=== PATIENT | male | born 1990 | race Caucasian/White ===

== ENCOUNTER 2016-09-23 12:34 | Emergency (ER) | payer SELFPAY ==
[~2016-09-23] VITALS: Ht 172.7 cm; Wt 59.1 kg
[~2016-09-23 12:34] MED LIST: NO HOME MEDICATIONS; NORCO 325 MG-51 TAB PO; NORCO 325 MG-7.1 TAB PO; TYLENOL #3 301 UDTAB PO
[2016-09-23 12:41] VITALS: BP 150/93; TEMP 98.2
[2016-09-23 13:47] VITALS: PULSE 106
== END 2016-09-23 13:53 | disposition home or self-care (01) ==
LOC: COL.ER 12:34
DX: S80.01XA Contusion of right knee, initial encounter (principal); W22.8XXA Striking against or struck by other objects, initial encounter; F17.210 Nicotine dependence, cigarettes, uncomplicated
CPT/HCPCS: L1830

== ENCOUNTER 2018-10-28 16:39 | Emergency (ER) | payer SELFPAY ==
[~2018-10-28] VITALS: Ht 172.7 cm; Wt 72.7 kg
[2018-10-28 16:45] VITALS: BP 126/76; TEMP 97.9
[2018-10-28] MEDS ORDERED: OMNICEF 300MG300 MG PO (17:29)
[2018-10-28] MEDS ORDERED: BACTRIM DS 8001 TAB PO (17:29)
[2018-10-28 17:56] VITALS: PULSE 82
== END 2018-10-28 17:56 | disposition home or self-care (01) ==
LOC: COL.ER 16:39
DX: L03.011 Cellulitis of right finger (principal)

== ENCOUNTER 2018-12-11 12:52 | Emergency (ER) | payer SELFPAY ==
[~2018-12-11] VITALS: Ht 175.3 cm; Wt 68.3 kg
[~2018-12-11 12:52] MED LIST changes: +BACTRIM DS 8001 TAB PO; +OMNICEF 300MG300 MG PO
[2018-12-11 12:55] VITALS: BP 135/78
[2018-12-11] MEDS ORDERED: TYLENOL 500MG500 MG PO (13:24)
[2018-12-11] MEDS ORDERED: CEPHALEXIN500 M1 PO (13:33)
[2018-12-11] MEDS ORDERED: NORCO 325 MG-51 TAB PO (13:33)
[2018-12-11 13:54] VITALS: PULSE 91; TEMP 97.8
== END 2018-12-11 13:54 | disposition home or self-care (01) ==
LOC: COL.ER 12:52
DX: K04.7 Periapical abscess without sinus (principal); F17.210 Nicotine dependence, cigarettes, uncomplicated

== ENCOUNTER 2022-08-15 23:53 | Emergency (ER) | payer OTHER ==
[~2022-08-15] VITALS: Ht 172.7 cm; Wt 72.7 kg
[~2022-08-15 23:53] MED LIST changes: +CEPHALEXIN500 M1 PO; +TYLENOL 500MG500 MG PO
[2022-08-15 23:59] VITALS: BP 162/96; TEMP 98.3
[2022-08-16 00:35] VITALS: PULSE 89
== END 2022-08-16 00:35 | disposition home or self-care (01) ==
LOC: COL.ER 23:53
DX: S62.324A Displaced fracture of shaft of fourth metacarpal bone, right hand, initial encounter for closed fracture (principal); Z28.310 Unvaccinated for COVID-19; W22.09XA Striking against other stationary object, initial encounter